=== PATIENT | female | born 1980 | race Caucasian/White ===

== ENCOUNTER → 2019-06-13 | Outpatient (CLI) | payer OTHER ==
[~2019-06-13] MED LIST: GLUCOPHAGE1000 MG PO; MASON NATURAL1200 MG PO; VICOPROFEN 7.51 TAB PO; ZYRTEC ALLERGY10 MG PO
== END ==
LOC: MC.RAD 12:49
DX: Z12.31 Encounter for screening mammogram for malignant neoplasm of breast (principal)

== ENCOUNTER → 2020-01-31 | Outpatient (CLI) | payer OTHER ==
[2020-01-31 21:27] LABS: SYNOVIAL FL. MONONUCLEAR 86.8 % (0-75); SYNOVIAL FLUID RBC 19000 /mm3 (0-0); SYNOVIAL FLUID WBC 400 /mm3 (200-600)
[2020-01-31 21:31] LABS: SYNOVIAL FLUID APPEARANCE HAZY; SYNOVIAL FLUID COLOR PINK
[2020-01-31 21:43] LABS: GLUCOSE,SYNOVIAL FLUID 171 mg/dL
== END ==
LOC: ZCOL.LAB 17:42
PROVIDERS: Orthopaedic Surgery
DX: M25.462 Effusion, left knee (principal)

== ENCOUNTER 2020-03-24 06:17 | Emergency (ER) | payer OTHER ==
[2020-03-24 07:53] VITALS: BP 54/43
--- NOTE | 2020-03-24 10:49 | NUR ---
Patient presented and in the ED. family support worker met with patient's spouse, eCsar, and his mother, Angie and offered emotional support. Spouse was tearful and stated that is appears that patient had a heart attack this morning. Angie and Cesar state they have two adult children that live in [place] and that they have been notified of patient's . Angie stated that they had also notified patient's parents of patient's . Angie and Cesar state they want to use [facility] as they had used them one month ago for another family member that had . Worker contacted Keli at [facility] and notified them that patient was cleared by [facility] to release the body. Angie Barr [phone], Cesar Barr [phone]. Worker and Fatuma, household worker, discussed autopsy. Cesar stated he would not want an autopsy and did not want to incur that cost. Cesar stated he was ok with an autopsy if physicians needed it and he did not have to pay for it. Angie and Cesar left the hospital together.
--- NOTE | 2020-03-24 10:55 | NUR ---
mat worker contacted Dr Worrell's office and spoke with Shreya Mann, who confirmed that they were patient's provider and that patient had been seen once in their office. Patient was transferring her care from Dr Pink to Shreya Mann.
== END 2020-03-24 12:11 | disposition expired ==
LOC: COL.ER 06:17
DX: I46.9 Cardiac arrest, cause unspecified (principal); I21.3 ST elevation (STEMI) myocardial infarction of unspecified site; Z20.828 Contact with and (suspected) exposure to other viral communicable diseases; Z79.84 Long term (current) use of oral hypoglycemic drugs
CPT/HCPCS: J0171; J0461; J3101; J7030